=== PATIENT | male | born 1980 | race Caucasian/White ===

== ENCOUNTER 2016-11-08 15:31 | Emergency (ER) | payer OTHER ==
[2016-11-08 15:42] VITALS: BP 131/71; RESP 20; TEMP 98.2
[2016-11-08] MEDS ORDERED: KETOROLAC 30 MG/ML 1 ML VIAL IVP STA (16:54)
--- NOTE | 2016-11-08 16:55 | ED ---
General Adult HPI - General Chief complaint: Chest Pain Stated complaint: Chest Pain Time Seen by Provider: 11/08/16 16:24 Source: patient, RN notes reviewed Mode of arrival: wheelchair Limitations: no limitations - History of Present Illness Initial comments: Patient is a 36-year-old male presents emergency room for evaluation of chest pain. Patient states he woke up, he began having sharp pain every time he takes deep breath. Patient states pain is not subsiding. Patient states the pain is worse when he bends over or presses over his chest. Patient does state that he occasionally smokes cigarettes. Patient states he quit smoking marijuana about 6 months ago. Patient does admit that he lifts up his daughter to twirl around once in a while but denies any other strenuous physical activity or changes in physical activity. Patient denies shortness of breath. Patient denies headache or dizziness. Patient denies any significant past medical history. Patient denies any family history of heart problems. Patient states he has a personal history of on and off high blood pressure. - Related Data Home Medications Medication Instructions Recorded Confirmed Lurasidone [Latuda] 80 mg PO DAILY 11/08/16 11/08/16 diphenhydrAMINE HCL [Benadryl] 25 mg PO DAILY PRN 11/08/16 11/08/16 oxyCODONE-APAP 10-325MG [Percocet 1 tab PO BID 11/08/16 11/08/16 10-325 mg] Allergies Allergy/AdvReac Type Severity Reaction Status Date / Time No Known Allergies Allergy Verified 11/08/16 16:36 Review of Systems ROS Statement: Those systems with pertinent positive or pertinent negative responses have been documented in the HPI. ROS Other: All systems not noted in ROS Statement are negative. Past Medical History Past Medical History: No Reported History History of Any Multi-Drug Resistant Organisms: None Reported Past Surgical History: Hernia Repair Past Psychological History: Depression, PTSD Smoking Status: Current some day smoker Past Alcohol Use History: None Reported Past Drug Use History: None Reported General Exam - General Exam Comments Initial Comments: Sitting in exam room in no acute distress. Limitations: no limitations General appearance: alert, in no apparent distress Head exam: Present: atraumatic, normocephalic, normal inspection Eye exam: Present: normal appearance ENT exam: Present: normal exam Neck exam: Present: normal inspection Respiratory exam: Present: normal lung sounds bilaterally, chest wall tenderness (Reproducible chest wall tenderness on the left side). Absent: respiratory distress Cardiovascular Exam: Present: regular rate, normal rhythm, normal heart sounds Extremities exam: Present: normal inspection Back exam: Present: normal inspection Neurological exam: Present: alert, oriented X3, CN II-XII intact, normal gait Psychiatric exam: Present: normal affect, normal mood Skin exam: Present: warm, dry, intact, normal color. Absent: rash Course Vital Signs 11/08/16 11/08/16 15:40 17:20 Temperature 98.2 F Pulse Rate 73 Pulse Rate [ 74 [employer] ] Respiratory 20 Rate Blood Pressure 131/71 O2 Sat by Pulse 97 Oximetry EKG Findings - EKG Comments: EKG Findings:: Sinus bradycardia, ventricular rate 52 bpm, HI interval 186 seconds, QRS duration 82 ms, QT/QTC 406/377 ms Medical Decision Making - Medical Decision Making Patient is a 36-year-old male presents to the emergency room for evaluation of chest pain. Pain is reproducible on palpation and worse with deep inspiration. Labs within normal limits. Cardiac enzymes within normal limits. Chest x- ray shows no acute findings. Patient states he is feeling better after Toradol given. Advised patient to follow-up with primary care provider for reevaluation in 24-48 hours. Advised patient to return for worsening symptoms. Patient states he understands everything that was discussed with him. Case discussed with Dr. Billingsley. - Lab Data Result diagrams: 11/08/16 17:00 11/08/16 17:00 Lab Results 11/08/16 11/08/16 11/08/16 Range/Units 17:00 17:00 17:00 WBC 8.7 (3.8-10.6) k/uL RBC 5.20 (4.30-5.90) m/uL Hgb 16.2 (13.0-17.5) gm/dL Hct 47.7 (39.0-53.0) % MCV 91.6 (80.0-100.0) fL MCH 31.1 (25.0-35.0) pg MCHC 34.0 (31.0-37.0) g/dL RDW 12.7 (11.5-15.5) % Plt Count 324 (150-450) k/uL Neutrophils % 68 % Lymphocytes % 24 % Monocytes % 4 % Eosinophils % 2 % Basophils % 0 % Neutrophils # 5.9 (1.3-7.7) k/uL Lymphocytes # 2.1 (1.0-4.8) k/uL Monocytes # 0.4 (0-1.0) k/uL Eosinophils # 0.2 (0-0.7) k/uL Basophils # 0.0 (0-0.2) k/uL PT (9.0-12.0) sec INR (<1.1) APTT (22.0-30.0) sec D-Dimer (<0.60) mg/L FEU Sodium 141 (137-145) mmol/L Potassium 4.9 (3.5-5.1) mmol/L Chloride 102 (98-107) mmol/L Carbon Dioxide 29 (22-30) mmol/L Anion Gap 10 mmol/L BUN 10 (9-20) mg/dL Creatinine 0.94 (0.66-1.25) mg/dL Est GFR (MDRD) Af Amer >60 (>60 ml/min/1.73 sqM) Est GFR (MDRD) Non-Af >60 (>60 ml/min/1.73 sqM) Glucose 92 (74-99) mg/dL Calcium 9.8 (8.4-10.2) mg/dL Magnesium 1.9 (1.6-2.3) mg/dL Total Bilirubin 0.6 (0.2-1.3) mg/dL AST 42 (17-59) U/L ALT 103 H (21-72) U/L Alkaline Phosphatase 68 (38-126) U/L Total Creatine Kinase 126 (55-170) U/L CK-MB (CK-2) 0.3 (0.0-2.4) ng/mL CK-MB (CK-2) Rel Index 0.2 Troponin I <0.012 (0.000-0.034) ng/mL Total Protein 7.5 (6.3-8.2) g/dL Albumin 4.7 (3.5-5.0) g/dL 11/08/16 Range/Units 17:00 WBC (3.8-10.6) k/uL RBC (4.30-5.90) m/uL Hgb (13.0-17.5) gm/dL Hct (39.0-53.0) % MCV (80.0-100.0) fL MCH (25.0-35.0) pg MCHC (31.0-37.0) g/dL RDW (11.5-15.5) % Plt Count (150-450) k/uL Neutrophils % % Lymphocytes % % Monocytes % % Eosinophils % % Basophils % % Neutrophils # (1.3-7.7) k/uL Lymphocytes # (1.0-4.8) k/uL Monocytes # (0-1.0) k/uL Eosinophils # (0-0.7) k/uL Basophils # (0-0.2) k/uL PT 10.5 (9.0-12.0) sec INR 1.0 (<1.1) APTT 23.9 (22.0-30.0) sec D-Dimer 0.38 (<0.60) mg/L FEU Sodium (137-145) mmol/L Potassium (3.5-5.1) mmol/L Chloride (98-107) mmol/L Carbon Dioxide (22-30) mmol/L Anion Gap mmol/L BUN (9-20) mg/dL Creatinine (0.66-1.25) mg/dL Est GFR (MDRD) Af Amer (>60 ml/min/1.73 sqM) Est GFR (MDRD) Non-Af (>60 ml/min/1.73 sqM) Glucose (74-99) mg/dL Calcium (8.4-10.2) mg/dL Magnesium (1.6-2.3) mg/dL Total Bilirubin (0.2-1.3) mg/dL AST (17-59) U/L ALT (21-72) U/L Alkaline Phosphatase (38-126) U/L Total Creatine Kinase (55-170) U/L CK-MB (CK-2) (0.0-2.4) ng/mL CK-MB (CK-2) Rel Index Troponin I (0.000-0.034) ng/mL Total Protein (6.3-8.2) g/dL Albumin (3.5-5.0) g/dL - Radiology Data Radiology results: report reviewed, image reviewed Disposition Clinical Impression: Pleuritic chest pain Disposition: HOME SELF-CARE Condition: Good Instructions: Pleurisy (ED) Additional Instructions: Take Tylenol or Motrin as needed for pain. Please follow-up with primary care provider for reevaluation in 24-48 hours. If any new symptom arises, symptoms worsen or fever develops, return to ER as soon as possible. Referrals: Eileen Villa MD [Primary Care Provider] - 1-2 days Time of Disposition: 18:31
[2016-11-08 17:23] VITALS: PULSE 74
[2016-11-08 17:23] LABS: Basophils % (A) 0 %; CH 31.9; Eosinophils # (A) 0.2 k/uL (0-0.7); Eosinophils % (A) 2 %; HCT 47.7 % (39.0-53.0); HGB 16.2 gm/dL (13.0-17.5); Luc # (Auto) 0.12; Luc % (Auto) 1; Lymphocytes # (A) 2.1 k/uL (1.0-4.8); Lymphocytes % (A) 24 %; MCH 31.1 pg (25.0-35.0); MCV 91.6 fL (80.0-100.0); Mean Platelet Volume 6.6; Monocytes # (A) 0.4 k/uL (0-1.0); Monocytes % (A) 4 %; Neutrophils # (A) 5.9 k/uL (1.3-7.7); Neutrophils % (A) 68 %; RDW 12.7 % (11.5-15.5); WBC 8.7 k/uL (3.8-10.6); WBC (Perox) 9.02
[2016-11-08 17:34] LABS: ALT 103 U/L (21-72); AST 42 U/L (17-59); Alkaline Phosphatase 68 U/L (38-126); Anion Gap 10 mmol/L; Blood Urea Nitrogen 10 mg/dL (9-20); Calcium 9.8 mg/dL (8.4-10.2); Carbon Dioxide 29 mmol/L (22-30); Chloride 102 mmol/L (98-107); Glucose 92 mg/dL (74-99); Magnesium 1.9 mg/dL (1.6-2.3); Non-African American GFR(MDRD) >60 (>60 ml/min/1.73 sqM); Potassium 4.9 mmol/L (3.5-5.1); Sodium 141 mmol/L (137-145); Total Bilirubin 0.6 mg/dL (0.2-1.3); Total Protein 7.5 g/dL (6.3-8.2)
[2016-11-08 17:38] LABS: Partial Thromboplastin Time 23.9 sec (22.0-30.0); Prothrombin Time 10.5 sec (9.0-12.0)
--- NOTE | 2016-11-08 17:52 | XR ---
EXAMINATION TYPE: XR chest 2V DATE OF EXAM: 11/08/2016 5:05 PM COMPARISON: NONE HISTORY: Sided chest pain today, greater than inspiration. TECHNIQUE: Frontal and lateral views of the chest are obtained. FINDINGS: There is no focal air space opacity, pleural effusion, or pneumothorax seen. The cardiac silhouette size is within normal limits. The osseous structures are intact. IMPRESSION: No acute cardiopulmonary process.
[2016-11-08 17:53] LABS: Creatine Kinase 126 U/L (55-170)
[2016-11-08 18:06] LABS: Creatine Kinase MB 0.3 ng/mL (0.0-2.4); Troponin I <0.012 ng/mL (0.000-0.034)
== END 2016-11-08 18:52 | disposition home or self-care (01) ==
LOC: EC 15:31
DX: R09.1 Pleurisy (principal); F32.9 Major depressive disorder, single episode, unspecified; F43.10 Post-traumatic stress disorder, unspecified; F17.210 Nicotine dependence, cigarettes, uncomplicated; Z79.899 Other long term (current) drug therapy
CPT/HCPCS: 99285; 96374; 36415; 85379; 80053; 82550; 82553; 83735; 84484; 85025; 85610; 85730; 71020; J1885

== ENCOUNTER → 2018-05-03 | Outpatient (CLI) | payer OTHER ==
--- NOTE | 2018-05-04 14:55 | MR ---
EXAMINATION TYPE: MR melvaine/luca wo con DATE OF EXAM: 05/03/2018 COMPARISON: 05/16/2016 HISTORY: Neck/lower back pain, BUE weakness/tingling, RLE radic CONTRAST: Performed utilizing 0 mL intravenous Gadavist gadolinium contrast. TECHNIQUE: Multiplanar multiecho imaging on a 3.0 Lcaritza magnet is performed through the cervical spin e. FINDINGS: The craniovertebral junction is normal. Vertebral body alignment is normal. Cord signal appears normal. C7-T1: No focal disc herniation or significant disc bulge is evident. No spinal canal stenosis or n eural foraminal stenosis is present. C6-7: Mild disc bulging is present with mild anterior thecal sac contact. No spinal canal stenosis or neural foraminal stenosis is present. No cord contact is evident.. C5-6: There is a central the left paracentral focal bulge. This appears to extend superiorly into a l eft paracentral disc herniation. This comes in close approximation with the spinal cord. Mild cord fl attening may be present. Spinal cord posterior to the inferior L4 endplate has flattening in the left portion. No signal abnormality is evident. Neural foramen are patent.. C4-5: Very subtle subligamentous disc herniation may be present in the sagittal plane. This is not id entified in the axial plane. No spinal canal stenosis significant anterior thecal sac compression or neural foramen narrowing is present. C3-4: No focal disc herniation or significant disc bulge is evident. No spinal canal stenosis or loren ral foraminal stenosis is present. C2-3: No focal disc herniation or significant disc bulge is evident. No spinal canal stenosis or loren ral foraminal stenosis is present. The disc herniation C5-6 does not appear larger. The annular tear is no longer identified. Approximat ion with the spinal cord appears closer. The degree of compression and deformity is similar. IMPRESSIONS: 1. Left paracentral disc herniation C5-C6 is slightly smaller than prior study. However, the degree o f compression and deformity of the spinal cord is unchanged. No signal change within the spinal cord is evident. EXAMINATION TYPE: MR jose l/luca wo con DATE OF EXAM: 05/03/2018 COMPARISON: 10/12/2015 HISTORY: Neck/lower back pain, BUE weakness/tingling, RLE radic CONTRAST: 0 mL intravenous Gadavist. TECHNIQUE: Multiplanar, multisequence images of the lumbar spine were acquired. FINDINGS: L5-S1: Left paracentral disc herniation is present with moderate anterior thecal sac compression. Thi s has some displacement of the left exiting S1 nerve root. Some mild compression is likely present. T his is associated with some endplate spurring. This is slightly progressive from the comparison study 10/12/2015. L4-L5: No significant disc bulge or disc herniation. No spinal canal stenosis. No foraminal stenosi s. Facet hypertrophy and ligamentum flavum laxity has minimal posterior lateral thecal sac compressi on. No stenosis is present. This area appears stable from comparison.. L3-L4: No significant disc bulge or disc herniation. No spinal canal stenosis. No foraminal stenosi s. Neural foramen are patent.. L2-L3: No significant disc bulge or disc herniation. No spinal canal stenosis. No foraminal stenosi s. Neural foramen are patent.. L1-L2: No significant disc bulge or disc herniation. No spinal canal stenosis. No foraminal stenosi s. Neural foramen are patent.. T12-L1: No significant disc bulge or disc herniation. No spinal canal stenosis. No foraminal stenos is. Neural foramen are patent.. IMPRESSION: 1. Progressive left paracentral disc herniation with associated endplate spurring with increased mode rate anterior thecal sac compression. There is increased compression of the exiting left S1 nerve zhao t. Correlate with radicular symptoms.
== END | disposition home or self-care (01) ==
LOC: RADMRIMAIN 04-14 08:33
PROVIDERS: ATTEND Psychiatry & Neurology Neurology
DX: M50.222 Other cervical disc displacement at C5-C6 level (principal); M51.26 Other intervertebral disc displacement, lumbar region; M46.06 Spinal enthesopathy, lumbar region; G95.29 Other cord compression
CPT/HCPCS: 72141; 72148

== ENCOUNTER 2019-10-12 10:23 | Emergency (ER) | payer OTHER ==
[2019-10-12] MEDS ORDERED: NITROGLYCERIN OINT 1 INCH/GM PACKET TOPICAL STA (10:44)
[2019-10-12] MEDS ORDERED: KETOROLAC 60 MG/2 ML VIAL IVP STA (10:45)
[2019-10-12 11:26] LABS: ALT 25 U/L (4-49); AST 30 U/L (17-59); African American GFR (CKD) >90 (>60 ml/min/1.73 sqM); Albumin 3.9 g/dL (3.5-5.0); Alkaline Phosphatase 55 U/L (38-126); Anion Gap 6 mmol/L; Blood Urea Nitrogen 18 mg/dL (9-20); Calcium 9.2 mg/dL (8.4-10.2); Carbon Dioxide 27 mmol/L (22-30); Chloride 103 mmol/L (98-107); Glucose 94 mg/dL (74-99); Magnesium 1.8 mg/dL (1.6-2.3); Non-African American GFR(CKD) >90 (>60 ml/min/1.73 sqM); Potassium 4.1 mmol/L (3.5-5.1); Sodium 136 mmol/L (137-145); Total Bilirubin 0.6 mg/dL (0.2-1.3); Total Protein 6.2 g/dL (6.3-8.2)
--- NOTE | 2019-10-12 11:38 | XR ---
EXAMINATION TYPE: XR chest 2V DATE OF EXAM: 10/12/2019 COMPARISON: Chest x-ray November 08, 2016. HISTORY: Stabbing mid chest pain. TECHNIQUE: Frontal and lateral views of the chest are obtained. FINDINGS: Low lung volumes with patchy bibasilar opacity greater on the left on current study. No pl eural effusion or pneumothorax is seen bilaterally. The cardiac silhouette size remains within normal limits. Overlying EKG leads. The osseous structures are intact. IMPRESSION: New left greater than right patchy bibasilar atelectasis and/or infiltrate.
--- NOTE | 2019-10-12 11:48 | ED ---
General Adult HPI - General Chief complaint: Chest Pain Stated complaint: chest pain Time Seen by Provider: 10/12/19 11:00 Source: patient, RN notes reviewed, old records reviewed Mode of arrival: wheelchair Limitations: no limitations - History of Present Illness Initial comments: This is a 39-year-old male who presents emergency Department complaining of left-sided chest pain. Patient states he woke up this morning with sharp pain to left-sided chest. Patient states comes on quickly and goes away quickly. Patient states only last for couple seconds. Patient states deep breathing or movement make it worse. Patient denies any shortness of breath or difficulty breathing. Patient denies any constant chest pain. Patient denies any injury or trauma. Patient denies any radiation of the pain. Patient states he quit smoking 3 years ago. Patient denies any high cholesterol. Patient states in the past he has had high blood pressure but since then he lost weight and exercises regularly and his blood pressures been normal. Patient denies any lower extremity swelling or calf tenderness. Patient denies any lightheadedness or dizziness. - Related Data Home Medications Medication Instructions Recorded Confirmed Lurasidone [Latuda] 80 mg PO DAILY 11/08/16 11/08/16 diphenhydrAMINE HCL [Benadryl] 25 mg PO DAILY PRN 11/08/16 11/08/16 oxyCODONE-APAP 10-325MG [Percocet 1 tab PO BID 11/08/16 11/08/16 10-325 mg] Previous Rx's Medication Instructions Recorded Azithromycin [Zithromax Tri-Sergey] 500 mg PO DAILY #3 tab 10/12/19 Allergies Allergy/AdvReac Type Severity Reaction Status Date / Time No Known Allergies Allergy Verified 10/12/19 10:27 Review of Systems ROS Statement: Those systems with pertinent positive or pertinent negative responses have been documented in the HPI. ROS Other: All systems not noted in ROS Statement are negative. Past Medical History Past Medical History: GERD/Reflux, Hyperlipidemia Additional Past Medical History / Comment(s): herniated disc, back/neck pain, palpitations History of Any Multi-Drug Resistant Organisms: None Reported Past Surgical History: Hernia Repair Past Psychological History: Depression, PTSD Smoking Status: Former smoker Past Alcohol Use History: Occasional Past Drug Use History: None Reported General Exam - General Exam Comments Initial Comments: GENERAL: Patient is well-developed and well-nourished. Patient is nontoxic and well- hydrated and is in mild distress. ENT: Neck is soft and supple. No significant lymphadenopathy is noted. Oropharynx is clear. Moist mucous membranes. Neck has full range of motion without eliciting any pain. EYES: The sclera were anicteric and conjunctiva were pink and moist. Extraocular movements were intact and pupils were equal round and reactive to light. Eyelids were unremarkable. PULMONARY: Unlabored respirations. Good breath sounds bilaterally. No audible rales rhonchi or wheezing was noted. CARDIOVASCULAR: There is a regular rate and rhythm without any murmurs gallops or rubs. ABDOMEN: Soft and nontender with normal bowel sounds. SKIN: Skin is clear with no lesions or rashes and otherwise unremarkable. NEUROLOGIC: Patient is alert and oriented x3. Cranial nerves II through XII are grossly intact. Motor and sensory are also intact. Normal speech, volume and content. Symmetrical smile. MUSCULOSKELETAL: Normal extremities with adequate strength and full range of motion. LYMPHATICS: No significant lymphadenopathy is noted PSYCHIATRIC: Normal psychiatric evaluation. Limitations: no limitations Course Vital Signs 10/12/19 10/12/19 10/12/19 10:27 10:38 11:00 Temperature 98.2 F Pulse Rate 59 L 65 52 L Respiratory 18 19 19 Rate Blood Pressure 122/67 122/76 O2 Sat by Pulse 96 99 99 Oximetry 10/12/19 10/12/19 10/12/19 11:30 12:00 12:30 Temperature Pulse Rate 55 L 61 55 L Respiratory 17 16 13 Rate Blood Pressure 117/74 131/87 114/76 O2 Sat by Pulse 99 99 97 Oximetry 10/12/19 12:56 Temperature Pulse Rate 58 L Respiratory 19 Rate Blood Pressure 110/98 O2 Sat by Pulse 95 Oximetry Medical Decision Making - Medical Decision Making EKG shows sinus bradycardia at 56 bpm MI interval is 202 QRS is 86 QT interval 396 QTC is 382. Patient's EKG shows no ST segment elevation or depression or T wave abnormalities are noted. Chest x-ray shows a left lower lobe infiltrate. Patient got Rocephin emergency department patient will go home on Zithromax. - Lab Data Result diagrams: 10/12/19 10:50 10/12/19 10:50 Lab Results 10/12/19 10/12/19 10/12/19 Range/Units 10:50 10:50 10:50 WBC 11.2 H (3.8-10.6) k/uL RBC 4.82 (4.30-5.90) m/uL Hgb 15.3 (13.0-17.5) gm/dL Hct 43.6 (39.0-53.0) % MCV 90.3 (80.0-100.0) fL MCH 31.7 (25.0-35.0) pg MCHC 35.1 (31.0-37.0) g/dL RDW 12.6 (11.5-15.5) % Plt Count 316 (150-450) k/uL Neutrophils % 72 % Lymphocytes % 21 % Monocytes % 5 % Eosinophils % 1 % Basophils % 0 % Neutrophils # 8.0 H (1.3-7.7) k/uL Lymphocytes # 2.4 (1.0-4.8) k/uL Monocytes # 0.6 (0-1.0) k/uL Eosinophils # 0.1 (0-0.7) k/uL Basophils # 0.0 (0-0.2) k/uL PT 9.9 (9.0-12.0) sec INR 0.9 (<1.2) APTT 22.6 (22.0-30.0) sec D-Dimer <0.17 (<0.60) mg/L FEU Sodium 136 L (137-145) mmol/L Potassium 4.1 (3.5-5.1) mmol/L Chloride 103 (98-107) mmol/L Carbon Dioxide 27 (22-30) mmol/L Anion Gap 6 mmol/L BUN 18 (9-20) mg/dL Creatinine 0.72 (0.66-1.25) mg/dL Est GFR (CKD-EPI)AfAm >90 (>60 ml/min/1.73 sqM) Est GFR (CKD-EPI)NonAf >90 (>60 ml/min/1.73 sqM) Glucose 94 (74-99) mg/dL Calcium 9.2 (8.4-10.2) mg/dL Magnesium 1.8 (1.6-2.3) mg/dL Total Bilirubin 0.6 (0.2-1.3) mg/dL AST 30 (17-59) U/L ALT 25 (4-49) U/L Alkaline Phosphatase 55 (38-126) U/L Troponin I (0.000-0.034) ng/mL Total Protein 6.2 L (6.3-8.2) g/dL Albumin 3.9 (3.5-5.0) g/dL 10/12/19 Range/Units 10:50 WBC (3.8-10.6) k/uL RBC (4.30-5.90) m/uL Hgb (13.0-17.5) gm/dL Hct (39.0-53.0) % MCV (80.0-100.0) fL MCH (25.0-35.0) pg MCHC (31.0-37.0) g/dL RDW (11.5-15.5) % Plt Count (150-450) k/uL Neutrophils % % Lymphocytes % % Monocytes % % Eosinophils % % Basophils % % Neutrophils # (1.3-7.7) k/uL Lymphocytes # (1.0-4.8) k/uL Monocytes # (0-1.0) k/uL Eosinophils # (0-0.7) k/uL Basophils # (0-0.2) k/uL PT (9.0-12.0) sec INR (<1.2) APTT (22.0-30.0) sec D-Dimer (<0.60) mg/L FEU Sodium (137-145) mmol/L Potassium (3.5-5.1) mmol/L Chloride (98-107) mmol/L Carbon Dioxide (22-30) mmol/L Anion Gap mmol/L BUN (9-20) mg/dL Creatinine (0.66-1.25) mg/dL Est GFR (CKD-EPI)AfAm (>60 ml/min/1.73 sqM) Est GFR (CKD-EPI)NonAf (>60 ml/min/1.73 sqM) Glucose (74-99) mg/dL Calcium (8.4-10.2) mg/dL Magnesium (1.6-2.3) mg/dL Total Bilirubin (0.2-1.3) mg/dL AST (17-59) U/L ALT (4-49) U/L Alkaline Phosphatase (38-126) U/L Troponin I <0.012 (0.000-0.034) ng/mL Total Protein (6.3-8.2) g/dL Albumin (3.5-5.0) g/dL Disposition Clinical Impression: Pneumonia Disposition: HOME SELF-CARE Instructions (If sedation given, give patient instructions): Bronchiolitis (ED), Bacterial Pneumonia (ED) Prescriptions: Azithromycin [Zithromax Tri-Sergey] 500 mg PO DAILY #3 tab Is patient prescribed a controlled substance at d/c from ED?: No Referrals: Eileen Villa MD [Primary Care Provider] - 1-2 days Time of Disposition: 13:09
[2019-10-12 11:51] LABS: D-Dimer <0.17 mg/L FEU (<0.60); INR 0.9 (<1.2); Partial Thromboplastin Time 22.6 sec (22.0-30.0); Prothrombin Time 9.9 sec (9.0-12.0)
[2019-10-12 12:22] LABS: Basophils % (A) 0 %; Eosinophils # (A) 0.1 k/uL (0-0.7); Eosinophils % (A) 1 %; HCT 43.6 % (39.0-53.0); HGB 15.3 gm/dL (13.0-17.5); Lymphocytes # (A) 2.4 k/uL (1.0-4.8); Lymphocytes % (A) 21 %; MCH 31.7 pg (25.0-35.0); MCHC 35.1 g/dL (31.0-37.0); MCV 90.3 fL (80.0-100.0); Mean Platelet Volume 7.5; Monocytes # (A) 0.6 k/uL (0-1.0); Monocytes % (A) 5 %; Neutrophils % (A) 72 %; Platelet Count 316 k/uL (150-450); RBC 4.82 m/uL (4.30-5.90); RDW 12.6 % (11.5-15.5); WBC 11.2 k/uL (3.8-10.6)
--- NOTE | 2019-10-12 13:02 | XR ---
EXAMINATION TYPE: XR chest 2V DATE OF EXAM: 10/12/2019 COMPARISON: Chest x-ray earlier today. HISTORY: Sharp stabbing pain. TECHNIQUE: Frontal and lateral views of the chest are obtained. FINDINGS: There is not much change in inspiration on current study with persistent patchy bibasilar opacities greater in the left lung base. Overlying EKG leads redemonstrated. The cardiac silhouette s ize is upper limits of normal. The osseous structures are intact. IMPRESSION: No improvement in inspiration. Low lung volumes with left greater than right patchy biba silar atelectasis and/or infiltrate redemonstrated.
[2019-10-12] MEDS ORDERED: cefTRIAXone IN SWFI 1,000 MG/10 ML SYRINGE IVP STA (13:08)
[2019-10-12 13:58] VITALS: BP 109/68; PULSE 55; RESP 17; TEMP 97.3
== END 2019-10-12 13:56 | disposition home or self-care (01) ==
LOC: EC 10:23
DX: J18.9 Pneumonia, unspecified organism (principal); R00.1 Bradycardia, unspecified; F32.9 Major depressive disorder, single episode, unspecified; Z87.891 Personal history of nicotine dependence; Z79.891 Long term (current) use of opiate analgesic; Z79.899 Other long term (current) drug therapy; Z87.39 Personal history of other diseases of the musculoskeletal system and connective tissue
CPT/HCPCS: 36415; 93005; 85379; 80053; 83735; 84484; 85025; 85610; 85730; 71046; 99285; 96374; 96375; J0696; J1885

== ENCOUNTER → 2020-04-14 | Outpatient (CLI) | payer OTHER ==
[2020-04-14 11:13] LABS: Basophils % (A) 0 %; Eosinophils % (A) 1 %; HCT 48.4 % (39.0-53.0); HGB 16.3 gm/dL (13.0-17.5); Lymphocytes # (A) 1.5 k/uL (1.0-4.8); Lymphocytes % (A) 21 %; MCHC 33.6 g/dL (31.0-37.0); MCV 95.3 fL (80.0-100.0); Monocytes # (A) 0.3 k/uL (0-1.0); Monocytes % (A) 4 %; Neutrophils # (A) 5.3 k/uL (1.3-7.7); Neutrophils % (A) 73 %; Platelet Count 312 k/uL (150-450); RBC 5.07 m/uL (4.30-5.90); RDW 13.2 % (11.5-15.5); WBC 7.3 k/uL (3.8-10.6)
[2020-04-14 16:52] LABS: African American GFR (CKD) 109.4 (60.0-200.0); Albumin 4.5 g/dL (3.80-4.90); Albumin/Globulin Ratio 2.37 (1.60-3.17); Anion Gap 9.6 mmol/L (4.00-12.00); Calcium 9.4 mg/dL (8.7-10.3); Carbon Dioxide 26.4 mmol/L (21.6-31.8); Globulin 1.9 g/dL (1.6-3.3); Non-African American GFR(CKD) 94.4 (60.0-200.0); Potassium 4.5 mmol/L (3.5-5.5); Total Bilirubin 0.5 mg/dL (0.3-1.2); Total Protein 6.4 g/dL (6.2-8.2)
[2020-04-14 19:56] LABS: Hemoglobin A1C 5.6 % (4.0-6.0)
== END | disposition home or self-care (01) ==
LOC: LABWHC1 09:51
PROVIDERS: ATTEND Physician Assistant
DX: N52.9 Male erectile dysfunction, unspecified (principal); G89.4 Chronic pain syndrome; R53.83 Other fatigue; M33.00 Juvenile dermatomyositis, organ involvement unspecified
CPT/HCPCS: 36415; 80053; 83036; 84402; 84403; 84439; 84443; 84481; 85025